=== PATIENT | female | born 1955 | race Two or more races ===

== ENCOUNTER 2019-07-17 15:34 | Inpatient (IN) | payer MEDICARE, BC ==
[~2019-07-17] VITALS: Ht 121.9 cm; Wt 75.7 kg
[2019-07-17] MEDS ORDERED: HALOPERIDOL 5 MG TABLET PO PRN (20:45)
[2019-07-17] MEDS ORDERED: ZOLPIDEM TARTRATE 10 MG TABLET PO PRN (20:45)
[2019-07-17] MEDS ORDERED: LORazepam 2 MG TABLET PO PRN (20:45)
[2019-07-17 21:07] VITALS: BP 132/86
[2019-07-17] MEDS ORDERED: INFLUENZA VIRUS VACCINE QVS 2019-20 (3YR+)/PF 60 MCG/0.5 ML SYRINGE IM ONE (23:15)
[2019-07-17] MEDS ORDERED: PNEUMOCOCCAL VACCINE POLYVALENT 0.5 ML VIAL [PPSV23] IM ONE (23:15)
[2019-07-18] MEDS: CLOPIDOGREL BISULFATE 75 MG TABLET PO SCH (06:56)
[2019-07-18 07:12] VITALS: BP 121/74
[2019-07-18 07:17] LABS: BASOPHILS % (AUTO) 0.5 % (0.0-2.0); EOSINOPHILS % (AUTO) 0.1 % (1.0-6.0); HEMATOCRIT 46.3 % (36-46); HEMOGLOBIN 15.5 g/dL (12.0-16.0); LYMPHOCYTES # (AUTO) 2.8 K/uL (1.0-4.8); LYMPHOCYTES % (AUTO) 25.8 % (22.0-44.0); MEAN CORPUSCULAR HEMOGLOBIN 31.4 pg (26.0-34.0); MEAN CORPUSCULAR HGB CONC 33.4 G/dL (31.0-37.0); MEAN CORPUSCULAR VOLUME 94 fL (80-100); MONOCYTES # (AUTO) 0.7 K/uL (0.1-1.0); MONOCYTES % (AUTO) 6.4 % (2.0-9.0); NEUTROPHILS # (AUTO) 7.2 K/uL (1.8-7.7); NEUTROPHILS % (AUTO) 67.2 % (40.0-70.0); PLATELET COUNT (AUTO) 178 K/uL (150-450); RED BLOOD CELL COUNT(AUTO) 4.93 MIL/uL (4.00-5.20); RED CELL DISTRIBUTION WIDTH 15.9 % (11.5-14.5)
[2019-07-18] MEDS ORDERED: ALBUTEROL SULFATE HFA 90 MCG/PUFF 8 GM INHALER IH PRN (08:00)
[2019-07-18] MEDS ORDERED: MAG HYDROX/AL HYDROX/SIMETH ES 30 ML SUSPENSION UDCUP PO PRN (08:00)
[2019-07-18] MEDS ORDERED: LOPERAMIDE HCL 2 MG CAPSULE PO PRN (08:00)
[2019-07-18] MEDS ORDERED: ONDANSETRON HCL 4 MG TABLET PO PRN (08:00)
[2019-07-18] MEDS ORDERED: MAGNESIUM HYDROXIDE SUSPENSION 30 ML UDCUP PO PRN (08:00)
[2019-07-18] MEDS ORDERED: IBUPROFEN 400 MG TABLET PO PRN (08:00)
[2019-07-18] MEDS ORDERED: DOCUSATE SODIUM 100 MG CAPSULE PO PRN (08:00)
[2019-07-18] MEDS ORDERED: GuaiFENesin/D-METHORPHAN [SUGAR-FREE] 200-20MG/10 ML SYRUP UDCUP PO PRN (08:00)
[2019-07-18] MEDS ORDERED: PETROLATUM,WHITE 28 GM JELLY TP PRN (08:00)
[2019-07-18] MEDS ORDERED: CloNIDine HCL 0.1 MG TABLET PO PRN (08:00)
[2019-07-18] MEDS ORDERED: ACETAMINOPHEN 325 MG TABLET PO PRN (08:00)
[2019-07-18] MEDS ORDERED: NICOTINE 14 MG/24 HOUR PATCH TD PRN (08:00)
[2019-07-18 08:20] LABS: CALCIUM, TOTAL 9.3 mg/dL (8.8-10.5); CREATININE 2.34 mg/dL (0.60-1.30); FREE T4 (FREE THYROXINE) 1.26 ng/dL (0.76-1.46); POTASSIUM 4.6 mmol/L (3.5-5.1); THYROID STIMULATING HORMONE 0.33 uIU/mL (0.36-3.74); TOTAL PROTEIN, SERUM 8.2 g/dL (6.4-8.2)
[2019-07-18 08:34] VITALS: BP 137/87
[2019-07-18 08:36] LABS: ALBUMIN 4.4 g/dL (3.4-5.0); BILIRUBIN,TOTAL 0.7 mg/dL (0.1-1.0)
[2019-07-18] MEDS: CARVEDILOL 3.125 MG TABLET PO SCH (09:13)
[2019-07-18] MEDS: ASPIRIN 81 MG CHEWABLE TABLET PO SCH (09:13)
[2019-07-18] MEDS: CHOLECALCIFEROL (VIT D3) 1,000 UNITS TABLET PO SCH (09:13)
[2019-07-18 10:16] VITALS: BP 122/86
[2019-07-18] MEDS: LamoTRIgine 100 MG TABLET PO SCH ×2 (12:40→21:00)
[2019-07-18] MEDS ORDERED: DEXTROSE 5%-WATER 1,000 ML IV ONE (15:43)
[2019-07-18 16:16] VITALS: BP 124/81
[2019-07-18] MEDS ORDERED: QUEtiapine FUMARATE 25 MG TABLET PO SCH (21:00)
[2019-07-19] MEDS: CLOPIDOGREL BISULFATE 75 MG TABLET PO SCH (06:36)
[2019-07-19 06:42] VITALS: BP 115/78
[2019-07-19 08:21] VITALS: BP 132/89
[2019-07-19] MEDS: LamoTRIgine 100 MG TABLET PO SCH (09:00)
[2019-07-19] MEDS: ASPIRIN 81 MG CHEWABLE TABLET PO SCH (09:00)
[2019-07-19] MEDS: CARVEDILOL 3.125 MG TABLET PO SCH (09:00)
[2019-07-19] MEDS: CHOLECALCIFEROL (VIT D3) 1,000 UNITS TABLET PO SCH (09:00)
[2019-07-19] MEDS ORDERED: ZOLP10TA6 PO (12:45)
[2019-07-19] MEDS ORDERED: LISI5TAB PO (12:45)
[2019-07-19] MEDS ORDERED: ARIP20TA PO (12:45)
[2019-07-19] MEDS ORDERED: LAMO150T PO (12:45)
[2019-07-19] MEDS ORDERED: ASPI81TA39 PO (12:45)
[2019-07-19] MEDS ORDERED: NITR0.4T SL (12:45)
[2019-07-19] MEDS ORDERED: MACR100 PO (12:45)
[2019-07-19] MEDS ORDERED: CARV3.1231 PO (12:45)
[2019-07-19] MEDS ORDERED: ATOR20TA65 PO (12:45)
[2019-07-21 00:38] LABS: GLUCOMETER DEV NAME(LOC) 5N.1; GLUCOSE,POINT OF CARE 88 MG/DL (70-110)
== END 2019-07-19 22:00 | disposition short-term general hospital (02) | DRG 885 ==
LOC: B2X 20:59
DX: F25.0 Schizoaffective disorder, bipolar type (principal); N17.9 Acute kidney failure, unspecified; N18.9 Chronic kidney disease, unspecified; E87.0 Hyperosmolality and hypernatremia; I12.9 Hypertensive chronic kidney disease with stage 1 through stage 4 chronic kidney disease, or unspecified chronic kidney disease; E78.5 Hyperlipidemia, unspecified; E55.9 Vitamin D deficiency, unspecified; Z79.899 Other long term (current) drug therapy
CPT/HCPCS: 76770; 84439; 84443

== ENCOUNTER 2019-07-19 10:57 | Inpatient (IN) | payer MEDICARE, BC ==
[~2019-07-19] VITALS: Ht 149.9 cm; Wt 73.5 kg
[2019-07-19] MEDS ORDERED: HALOPERIDOL LACTATE 5 MG/ML VIAL IM ONE (12:45)
[2019-07-19] MEDS ORDERED: SODIUM CHLORIDE 0.9% 1,000 ML IV ONE (12:45)
[2019-07-19] MEDS ORDERED: CARV3.1231 PO (12:45)
[2019-07-19] MEDS ORDERED: DiphenhydrAMINE HCL 50 MG/ML VIAL IM ONE (12:45)
[2019-07-19] MEDS ORDERED: NITR0.4T SL (12:45)
[2019-07-19] MEDS ORDERED: ARIP20TA PO (12:45)
[2019-07-19] MEDS ORDERED: LAMO150T PO (12:45)
[2019-07-19] MEDS ORDERED: MACR100 PO (12:45)
[2019-07-19] MEDS ORDERED: LISI5TAB PO (12:45)
[2019-07-19] MEDS ORDERED: ZOLP10TA6 PO (12:45)
[2019-07-19] MEDS ORDERED: LORazepam 2 MG/ML VIAL IM ONE (12:45)
[2019-07-19] MEDS ORDERED: ATOR20TA65 PO (12:45)
[2019-07-19] MEDS ORDERED: ASPI81TA39 PO (12:45)
[2019-07-19 13:36] LABS: BASOPHILS % (AUTO) 0.8 % (0.0-2.0); EOSINOPHILS % (AUTO) 0 % (1.0-6.0); HEMATOCRIT 43.3 % (36-46); HEMOGLOBIN 14.1 g/dL (12.0-16.0); LYMPHOCYTES # (AUTO) 2.8 K/uL (1.0-4.8); LYMPHOCYTES % (AUTO) 26.9 % (22.0-44.0); MEAN CORPUSCULAR HEMOGLOBIN 30.7 pg (26.0-34.0); MEAN CORPUSCULAR HGB CONC 32.4 G/dL (31.0-37.0); MEAN CORPUSCULAR VOLUME 95 fL (80-100); MONOCYTES # (AUTO) 0.7 K/uL (0.1-1.0); MONOCYTES % (AUTO) 6.3 % (2.0-9.0); PLATELET COUNT (AUTO) 173 K/uL (150-450); RED BLOOD CELL COUNT(AUTO) 4.58 MIL/uL (4.00-5.20); RED CELL DISTRIBUTION WIDTH 16.3 % (11.5-14.5)
[2019-07-19 13:44] LABS: CALCIUM, TOTAL 8.5 mg/dL (8.8-10.5); CREATININE 4.43 mg/dL (0.60-1.30); POTASSIUM 4.5 mmol/L (3.5-5.1)
[2019-07-19 13:48] LABS: INR 1.1 (0.9-1.1); PROTHROMBIN TIME 11.4 SEC (9.4-11.6)
[2019-07-19 13:54] LABS: TROPONIN I 0.07 ng/mL (0.00-0.05)
[2019-07-19 14:01] LABS: LACTIC ACID 2.1 mmol/L (0.4-2.0)
[2019-07-19 14:09] LABS: BILIRUBIN,TOTAL 0.6 mg/dL (0.1-1.0); TOTAL PROTEIN, SERUM 7.7 g/dL (6.4-8.2)
[2019-07-19] MEDS ORDERED: CefTRIAXone 1 GM/DEXTROSE 50 ML IV ONE (15:15)
[2019-07-19] MEDS ORDERED: SODIUM CHLORIDE 0.9% 2,000 ML IV ONE (15:15)
[2019-07-19] MEDS ORDERED: 0.9% SODIUM CHLORIDE 10 ML SYRINGE IVP PRN (15:30)
[2019-07-19] MEDS ORDERED: ACETAMINOPHEN 325 MG TABLET PO PRN (15:30)
[2019-07-19 16:45] LABS: APPEARANCE,URINE CLOUDY (CLEAR); GLUCOSE, URINE (UA) NEGATIVE (NEGATIVE); KETONES,URINE NEGATIVE (NEGATIVE); LEUKOCYTE ESTERASE ,URINE NEGATIVE (NEGATIVE); NITRATE,URINE NEGATIVE (NEGATIVE); OCCULT BLOOD,URINE SMALL (NEGATIVE); PROTEIN,URINE SEE CONFIRM (NEGATIVE); UROBILINOGEN,URINE 0.2 mg/dL (<=1.0)
[2019-07-19 16:48] LABS: BILIRUBIN,URINE PRELIM. POSITIVE (NEGATIVE)
[2019-07-19 16:51] LABS: AMPHET/METH SCREEN,URINE NEGATIVE (NEGATIVE); BARBITURATE SCREEN, URINE NEGATIVE (NEGATIVE); BENZODIAZEPINES SCREEN,URINE NEGATIVE (NEGATIVE); CANNABINOID SCREEN,URINE NEGATIVE (NEGATIVE); COCAINE SCREEN,URINE NEGATIVE (NEGATIVE); METHADONE SCREEN, URINE NEGATIVE (NEGATIVE); OPIATE SCREEN,URINE NEGATIVE (NEGATIVE)
[2019-07-19 16:52] LABS: PHENCYCLIDINE SCREEN,URINE NEGATIVE (NEGATIVE)
[2019-07-19 16:55] LABS: SULFOSALICYLIC ACID,URINE 4+ (Negative)
[2019-07-19 16:56] LABS: AMORPHOUS SEDIMENT,UR Moderate /LPF (None Seen); BACTERIA,URINE None Seen /HPF (None Seen); RBC,URINE 0-2 /HPF (0-2); SQUAMOUS EPITHELIAL CELL,UR Few /LPF (None Seen)
[2019-07-19] MEDS ORDERED: INSULIN LISPRO 100 UNITS/ML SQ PRN (21:30)
[2019-07-19] MEDS ORDERED: DEXTROSE 50%-WATER 25 GM/50 ML SYRINGE IVP PRN (21:30)
[2019-07-19] MEDS ORDERED: SODIUM CHLORIDE 0.45% 1,000 ML IV SCH (21:30)
[2019-07-19 21:46] VITALS: BP 136/56
[2019-07-20 01:00] VITALS: BP 126/55
[2019-07-20] MEDS ORDERED: OxyCODONE HCL/ACETAMINOPHEN 5-325 MG TABLET PO PRN ×2 (03:00)
[2019-07-20] MEDS ORDERED: ONDANSETRON HCL 4 MG/2 ML VIAL IVP PRN (03:00)
[2019-07-20] MEDS ORDERED: ACETAMINOPHEN 325 MG TABLET PO PRN (03:00)
[2019-07-20] MEDS ORDERED: MAGNESIUM HYDROXIDE SUSPENSION 30 ML UDCUP PO PRN (03:00)
[2019-07-20] MEDS ORDERED: 0.9% SODIUM CHLORIDE 10 ML SYRINGE IVP PRN (03:00)
[2019-07-20] MEDS ORDERED: NITROGLYCERIN 0.4 MG SUBLINGUAL TABLET #25 SL PRN (03:00)
[2019-07-20] MEDS ORDERED: LEVOFLOXACIN 500 MG/D5% WATER 100 ML IV SCH ×2 (03:15→04:00)
[2019-07-20 04:26] VITALS: BP 128/51
[2019-07-20 07:39] VITALS: BP 159/77
[2019-07-20] MEDS: ATORVASTATIN CALCIUM 20 MG TABLET PO SCH (08:00)
[2019-07-20] MEDS: CARVEDILOL 3.125 MG TABLET PO SCH ×2 (08:00→22:07)
[2019-07-20] MEDS: LISINOPRIL 5 MG TABLET PO SCH (08:00)
[2019-07-20] MEDS: ASPIRIN 81 MG CHEWABLE TABLET PO SCH (08:00)
[2019-07-20] MEDS: DOCUSATE SODIUM 100 MG CAPSULE PO SCH ×2 (08:01→22:06)
[2019-07-20 09:22] LABS: BASOPHILS % (AUTO) 1.5 % (0.0-2.0); EOSINOPHILS % (AUTO) 1.1 % (1.0-6.0); HEMATOCRIT 36.4 % (36-46); HEMOGLOBIN 11.9 g/dL (12.0-16.0); LYMPHOCYTES # (AUTO) 2.8 K/uL (1.0-4.8); LYMPHOCYTES % (AUTO) 32.8 % (22.0-44.0); MEAN CORPUSCULAR HGB CONC 32.7 G/dL (31.0-37.0); MEAN CORPUSCULAR VOLUME 95 fL (80-100); MONOCYTES # (AUTO) 0.6 K/uL (0.1-1.0); MONOCYTES % (AUTO) 7.4 % (2.0-9.0); NEUTROPHILS # (AUTO) 4.9 K/uL (1.8-7.7); NEUTROPHILS % (AUTO) 57.2 % (40.0-70.0); PLATELET COUNT (AUTO) 132 K/uL (150-450); RED BLOOD CELL COUNT(AUTO) 3.84 MIL/uL (4.00-5.20); RED CELL DISTRIBUTION WIDTH 16.3 % (11.5-14.5)
[2019-07-20 09:41] LABS: ALBUMIN 3.1 g/dL (3.4-5.0); BILIRUBIN,TOTAL 0.7 mg/dL (0.1-1.0); CALCIUM, TOTAL 7.1 mg/dL (8.8-10.5); CREATININE 3.26 mg/dL (0.60-1.30); POTASSIUM 3.5 mmol/L (3.5-5.1); TOTAL PROTEIN, SERUM 6.3 g/dL (6.4-8.2)
[2019-07-20 10:46] VITALS: BP 125/57
[2019-07-20] MEDS: SODIUM CHLORIDE 0.9% 1,000 ML IV SCH (11:45)
[2019-07-20 16:04] VITALS: BP 133/59
[2019-07-20 17:35] LABS: CREATININE,URINE RANDOM 73.4 mg/dL (30.0-125.0); PROTEIN,URINE RANDOM 35 mg/dL (0-11.9); SODIUM,URINE RANDOM 28 mmol/l (20-110); UREA NITROGEN,URINE RANDOM 614 mg/dL (350-1000)
[2019-07-20 20:12] VITALS: BP 117/76
[2019-07-21 00:02] VITALS: BP 101/61
[2019-07-21 00:38] LABS: GLUCOMETER DEV NAME(LOC) 5N.1; GLUCOSE,POINT OF CARE 100 MG/DL (70-110)
[2019-07-21 00:39] LABS: GLUCOMETER DEV NAME(LOC) 5N.2; GLUCOSE,POINT OF CARE 98 MG/DL (70-110)
[2019-07-21 00:39] LABS: GLUCOMETER DEV NAME(LOC) 5N.1; GLUCOSE,POINT OF CARE 99 MG/DL (70-110)
[2019-07-21] MEDS: SODIUM CHLORIDE 0.9% 1,000 ML IV SCH ×2 (02:15→18:32)
[2019-07-21 02:48] LABS: GLUCOMETER DEV NAME(LOC) 5S.2A; GLUCOSE,POINT OF CARE 119 MG/DL (70-110)
[2019-07-21] MEDS: LEVOFLOXACIN 250 MG/D5% WATER 50 ML IV SCH (04:10)
[2019-07-21 04:22] VITALS: BP 114/75
[2019-07-21 08:00] VITALS: BP 145/63
[2019-07-21] MEDS: ASPIRIN 81 MG CHEWABLE TABLET PO SCH (08:43)
[2019-07-21] MEDS: DOCUSATE SODIUM 100 MG CAPSULE PO SCH ×2 (08:43→20:43)
[2019-07-21] MEDS: LISINOPRIL 5 MG TABLET PO SCH (08:43)
[2019-07-21] MEDS: CARVEDILOL 3.125 MG TABLET PO SCH ×2 (08:44→20:42)
[2019-07-21] MEDS: ATORVASTATIN CALCIUM 20 MG TABLET PO SCH (08:44)
[2019-07-21 11:48] VITALS: BP 108/59
[2019-07-21] MEDS: LamoTRIgine 25 MG TABLET PO SCH ×2 (13:03→20:44)
[2019-07-21] MEDS ORDERED: VANCOMYCIN HCL 1 GM/D5% WATER 200 ML IV ONE (13:45)
[2019-07-21 15:52] VITALS: BP 121/80
[2019-07-21 16:01] LABS: GLUCOMETER DEV NAME(LOC) 5N.1; GLUCOSE,POINT OF CARE 149 MG/DL (70-110)
[2019-07-21 18:13] LABS: GLUCOMETER DEV NAME(LOC) 5S.2A; GLUCOSE,POINT OF CARE 99 MG/DL (70-110)
[2019-07-21 19:50] LABS: GLUCOMETER DEV NAME(LOC) 5N.2; GLUCOSE,POINT OF CARE 55 MG/DL (70-110)
[2019-07-21 19:51] LABS: GLUCOMETER DEV NAME(LOC) 5N.1; GLUCOSE,POINT OF CARE 131 MG/DL (70-110)
[2019-07-21 20:43] VITALS: BP 126/57
[2019-07-21] MEDS: TraZODone HCL 50 MG TABLET PO SCH (20:43)
[2019-07-21] MEDS ORDERED: QUEtiapine FUMARATE 25 MG TABLET PO SCH (21:00)
[2019-07-22 00:03] VITALS: BP 118/76
[2019-07-22 04:24] VITALS: BP 123/54
[2019-07-22] MEDS: LEVOFLOXACIN 250 MG/D5% WATER 50 ML IV SCH (05:53)
[2019-07-22] MEDS: SODIUM CHLORIDE 0.9% 1,000 ML IV SCH (05:54)
[2019-07-22 07:22] LABS: CALCIUM, TOTAL 7.3 mg/dL (8.8-10.5); CREATININE 2.71 mg/dL (0.60-1.30); POTASSIUM 4.1 mmol/L (3.5-5.1)
[2019-07-22] MEDS: ATORVASTATIN CALCIUM 20 MG TABLET PO SCH (07:54)
[2019-07-22] MEDS: DOCUSATE SODIUM 100 MG CAPSULE PO SCH ×2 (07:54→20:49)
[2019-07-22] MEDS: ASPIRIN 81 MG CHEWABLE TABLET PO SCH (07:54)
[2019-07-22] MEDS: CARVEDILOL 3.125 MG TABLET PO SCH ×2 (07:54→20:49)
[2019-07-22] MEDS: LamoTRIgine 25 MG TABLET PO SCH ×2 (07:54→20:49)
[2019-07-22 07:55] VITALS: BP 140/55
[2019-07-22] MEDS: DEXTROSE 5%-WATER 1,000 ML IV SCH ×2 (08:10→18:48)
[2019-07-22 11:07] VITALS: BP 142/84
[2019-07-22 13:24] LABS: GLUCOMETER DEV NAME(LOC) 5N.2; GLUCOSE,POINT OF CARE 76 MG/DL (70-110)
[2019-07-22 13:42] LABS: GLUCOMETER DEV NAME(LOC) 5N.1; GLUCOSE,POINT OF CARE 82 MG/DL (70-110)
[2019-07-22 13:50] LABS: GLUCOMETER DEV NAME(LOC) 5N.1; GLUCOSE,POINT OF CARE 90 MG/DL (70-110)
[2019-07-22 15:42] VITALS: BP 126/56
[2019-07-22 19:37] VITALS: BP 116/71
[2019-07-22] MEDS: TraZODone HCL 50 MG TABLET PO SCH (20:49)
[2019-07-23] VITALS (7 sets, daily range): BP systolic 108–139; BP diastolic 55–81
[2019-07-23] MEDS: DEXTROSE 5%-WATER 1,000 ML IV SCH (07:52)
[2019-07-23] MEDS ORDERED: VANCOMYCIN HCL 1 GM/D5% WATER 200 ML IV SCH (08:00)
[2019-07-23] MEDS: LamoTRIgine 25 MG TABLET PO SCH ×2 (08:06→21:15)
[2019-07-23] MEDS: DOCUSATE SODIUM 100 MG CAPSULE PO SCH ×2 (08:06→21:15)
[2019-07-23] MEDS: ASPIRIN 81 MG CHEWABLE TABLET PO SCH (08:07)
[2019-07-23] MEDS: ATORVASTATIN CALCIUM 20 MG TABLET PO SCH (08:07)
[2019-07-23] MEDS: CARVEDILOL 3.125 MG TABLET PO SCH ×2 (08:07→21:15)
[2019-07-23 08:20] LABS: GLUCOMETER DEV NAME(LOC) 5N.1; GLUCOSE,POINT OF CARE 83 MG/DL (70-110)
[2019-07-23 08:26] LABS: CALCIUM, TOTAL 7.6 mg/dL (8.8-10.5); CREATININE 2.36 mg/dL (0.60-1.30)
[2019-07-23 09:42] LABS: GLUCOMETER DEV NAME(LOC) 5N.1; GLUCOSE,POINT OF CARE 91 MG/DL (70-110)
[2019-07-23 12:20] LABS: GLUCOMETER DEV NAME(LOC) 5N.1; GLUCOSE,POINT OF CARE 100 MG/DL (70-110)
[2019-07-23 12:22] LABS: GLUCOMETER DEV NAME(LOC) 5S.2A; GLUCOSE,POINT OF CARE 102 MG/DL (70-110)
[2019-07-23] MEDS: TraZODone HCL 50 MG TABLET PO SCH (21:15)
[2019-07-23 21:37] LABS: GLUCOMETER DEV NAME(LOC) 5N.2; GLUCOSE,POINT OF CARE 76 MG/DL (70-110)
[2019-07-24 00:32] VITALS: BP 116/55
[2019-07-24 05:02] VITALS: BP 143/69
[2019-07-24 06:46] LABS: CALCIUM, TOTAL 7.7 mg/dL (8.8-10.5); CREATININE 2.36 mg/dL (0.60-1.30)
[2019-07-24 06:56] LABS: BASOPHILS % (AUTO) 0.4 % (0.0-2.0); EOSINOPHILS % (AUTO) 2.6 % (1.0-6.0); HEMOGLOBIN 11.3 g/dL (12.0-16.0); LYMPHOCYTES # (AUTO) 2.3 K/uL (1.0-4.8); MEAN CORPUSCULAR HEMOGLOBIN 31.4 pg (26.0-34.0); MEAN CORPUSCULAR HGB CONC 33.3 G/dL (31.0-37.0); MEAN CORPUSCULAR VOLUME 94 fL (80-100); MONOCYTES # (AUTO) 0.6 K/uL (0.1-1.0); MONOCYTES % (AUTO) 9.2 % (2.0-9.0); NEUTROPHILS # (AUTO) 3.2 K/uL (1.8-7.7); NEUTROPHILS % (AUTO) 50.8 % (40.0-70.0); PLATELET COUNT (AUTO) 101 K/uL (150-450); RED BLOOD CELL COUNT(AUTO) 3.61 MIL/uL (4.00-5.20); RED CELL DISTRIBUTION WIDTH 15.4 % (11.5-14.5)
[2019-07-24 08:09] VITALS: BP 118/50
[2019-07-24] MEDS: DOCUSATE SODIUM 100 MG CAPSULE PO SCH ×2 (08:58→21:11)
[2019-07-24] MEDS: LamoTRIgine 25 MG TABLET PO SCH ×2 (08:58→21:11)
[2019-07-24] MEDS: CARVEDILOL 3.125 MG TABLET PO SCH ×2 (08:58→21:11)
[2019-07-24] MEDS: ATORVASTATIN CALCIUM 20 MG TABLET PO SCH (08:58)
[2019-07-24] MEDS: ASPIRIN 81 MG CHEWABLE TABLET PO SCH (08:58)
[2019-07-24] MEDS ORDERED: DEXTROSE 5%-WATER 500 ML IV ONE (10:00)
[2019-07-24 10:08] LABS: MAGNESIUM 2.4 mg/dL (1.80-2.40); PHOSPHORUS 3.7 mg/dL (2.5-4.9)
[2019-07-24 11:46] VITALS: BP 112/59
[2019-07-24 12:17] LABS: GLUCOMETER DEV NAME(LOC) 5N.2; GLUCOSE,POINT OF CARE 112 MG/DL (70-110)
[2019-07-24 15:53] VITALS: BP 114/61
[2019-07-24 17:36] LABS: GLUCOMETER DEV NAME(LOC) 5N.1; GLUCOSE,POINT OF CARE 78 MG/DL (70-110)
[2019-07-24] MEDS: TraZODone HCL 50 MG TABLET PO SCH (21:12)
[2019-07-24 21:26] VITALS: BP 144/58
[2019-07-25 00:33] LABS: GLUCOMETER DEV NAME(LOC) 5N.2; GLUCOSE,POINT OF CARE 130 MG/DL (70-110)
[2019-07-27 16:56] LABS: GLUCOMETER DEV NAME(LOC) 5N.1; GLUCOSE,POINT OF CARE 91 MG/DL (70-110)
[2019-07-27 16:56] LABS: GLUCOMETER DEV NAME(LOC) 5N.2; GLUCOSE,POINT OF CARE 90 MG/DL (70-110)
== END 2019-07-24 21:00 | disposition home or self-care (01) | DRG 682 ==
LOC: EMS 10:58 → 5S 14:20 → UNDODISIN 07-20 07:45
PROVIDERS: ADMIT Hospitalist; ATTEND Hospitalist
DX: N17.9 Acute kidney failure, unspecified (principal); G93.41 Metabolic encephalopathy; E87.0 Hyperosmolality and hypernatremia; E87.2 Acidosis; E86.0 Dehydration; F41.9 Anxiety disorder, unspecified; M19.90 Unspecified osteoarthritis, unspecified site; J45.909 Unspecified asthma, uncomplicated; R62.7 Adult failure to thrive; I12.9 Hypertensive chronic kidney disease with stage 1 through stage 4 chronic kidney disease, or unspecified chronic kidney disease; F25.0 Schizoaffective disorder, bipolar type; E78.5 Hyperlipidemia, unspecified; I25.10 Atherosclerotic heart disease of native coronary artery without angina pectoris; N18.4 Chronic kidney disease, stage 4 (severe); E11.65 Type 2 diabetes mellitus with hyperglycemia; E11.22 Type 2 diabetes mellitus with diabetic chronic kidney disease; E66.9 Obesity, unspecified; B95.62 Methicillin resistant Staphylococcus aureus infection as the cause of diseases classified elsewhere; D64.9 Anemia, unspecified; Z88.0 Allergy status to penicillin; Z88.2 Allergy status to sulfonamides; Z88.8 Allergy status to other drugs, medicaments and biological substances; Z86.718 Personal history of other venous thrombosis and embolism; Z68.32 Body mass index [BMI] 32.0-32.9, adult; Z91.14 Patient's other noncompliance with medication regimen; I25.2 Old myocardial infarction; Z86.73 Personal history of transient ischemic attack (TIA), and cerebral infarction without residual deficits; Z95.5 Presence of coronary angioplasty implant and graft
CPT/HCPCS: 51701; 51702; 70450; 82570; 83605; 83735; 84100; 84156; 84295; 84300; 84540; 87040; 87081; 87086; 87205; 89050; 93005; 99291; J0696; J1200; J1630; J1956; J2060; J3370; J7030; J7060